=== PATIENT | male | born 1950 | race Caucasian/White ===

== ENCOUNTER 2018-11-02 00:43 | Outpatient (CLI) | payer BC, SELFPAY ==
--- NOTE | 2018-11-02 07:29 | MERGE_ITS ---
*[facility]* *[facility]* [address] [place] [address] Date of study: 11/02/2018 Transthoracic Echocardiography M-mode, complete 2D, complete spectral Doppler, and color Doppler *STUDY CONCLUSIONS* Summary: 1. Left ventricle: The cavity size was mildly to moderately dilated. Systolic function was normal. The estimated ejection fraction was 60-65%. Wall motion was normal; there were no regional wall motion abnormalities. Diastolic parameters were normal for age. There was no evidence of elevated ventricular filling pressure by Doppler parameters. 2. Aortic valve: There was moderate to severe regurgitation. 3. Aortic root: The aortic root was normal in size. 4. Ascending aorta: The ascending aorta was moderately dilated. 5. Mitral valve: There was mild regurgitation. 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 Chordal ROCÍO. 6. Right ventricle: The cavity size was normal. Wall thickness was normal. Systolic function was normal. 7. Right atrium: The atrium was mildly dilated. 8. Atrial septum: No defect or patent foramen ovale was identified. 9. Pulmonary arteries: Pulmonary systolic pressure was in the range of 20mm Hg to 30mm Hg. 10. Inferior vena cava: The vessel was patent and normal in size. The respirophasic diameter changes were in the normal range (greater than or equal to 50%), consistent with normal central venous pressure. *PATIENT PRESENTATION* Height: () S/D Pressure: 151 / 69 Weight: 86.4kg (190lb ) BSA: Test start time: 07:40 AM. Test stop time: 08:45 AM. PERFORMING Unknown PERFORMING [facility] SUPERVISOR POWDERED SUGAR RT Manpreet Mckenzie)(CT), [facility] CONSULTING Khoa Jose ORDERING Khoa Jose REFERRING Khoa Jose *PROCEDURE DATA* Procedure information: The patient was identified by two identifiers. This study was interpreted by [facility]. Pertinent images and digital data are archived for permanent storage and are available for subsequent review. No prior study was available for comparison. Study status: Routine. Transthoracic echocardiography. M-mode, complete 2D, complete spectral Doppler, and color Doppler. A Transthoracic Echocardiogram was performed. Scanning was performed from the parasternal, apical, subcostal, and suprasternal notch acoustic windows. Images were obtained using an [id number] cardiac ultrasound machine. Image quality was fair. Study completion: The patient tolerated the procedure well. History: PMH: Aortic diastolic murmur i35.8. *CARDIAC ANATOMY* Left ventricle: The cavity size was mildly to moderately dilated. Systolic function was normal. The estimated ejection fraction was 60-65%. Wall motion was normal; there were no regional wall motion abnormalities. Diastolic parameters were normal for age. There was no evidence of elevated ventricular filling pressure by Doppler parameters. Aortic valve: Trileaflet. Doppler: There was no stenosis. There was moderate to severe regurgitation. VTI ratio of LVOT to aortic valve: 0.84. Valve area (VTI): 3.1cm^2. Peak velocity ratio of LVOT to aortic valve: 0.88. Valve area (Vmax): 3.3cm^2. Mean velocity ratio of LVOT to aortic valve: 0.81. Valve area (Vmean): 3cm^2. Mean gradient (S): 9.8mm Hg. Peak gradient (S): 17.1mm Hg. Aorta: Aortic root: The aortic root was normal in size. Ascending aorta: The ascending aorta was moderately dilated. Mitral valve: Doppler: There was no evidence for stenosis. There was mild regurgitation. Valve area by pressure half-time: 2.6cm^2. Left atrium: The atrium was normal in size. Atrial septum: No defect or patent foramen ovale was identified. Right ventricle: The cavity size was normal. Wall thickness was normal. Systolic function was normal. Pulmonic valve: Doppler: There was no evidence for stenosis. There was mild regurgitation. Tricuspid valve: Doppler: There was mild regurgitation. Pulmonary artery: Poorly visualized. Pulmonary systolic pressure was in the range of 20mm Hg to 30mm Hg. Right atrium: The atrium was mildly dilated. Pericardium: There was no pericardial effusion. Systemic veins: Inferior vena cava: Well visualized. The vessel was patent and normal in size. The respirophasic diameter changes were in the normal range (greater than or equal to 50%), consistent with normal central venous pressure. Baseline ECG: Bradycardia. Measurements Left ventricle Value Reference LV ID, ED, PLAX (H) 6.3 cm 3.5 - 6.0 LV ID, ES, PLAX (H) 4.2 cm 2.1 - 4.0 LV PW thickness, ED, PLAX 0.9 cm LV end-diastolic volume, 1-p A2C 167 ml LV ejection fraction, 1-p A2C 71 % LV end-diastolic volume, 1-p A4C 142 ml LV ejection fraction, 1-p A4C 68 % LV e', lateral 0.099 m/sec LV E/e', lateral 7 LV e', medial 0.071 m/sec LV E/e', medial 9 LV e', average 0.085 m/sec LV E/e', average 8 Ventricular septum Value Reference IVS thickness, ED, PLAX 0.9 cm LVOT Value Reference LVOT ID, A-P 2.2 cm LVOT area 3.7 cm^2 LVOT peak velocity, S 1.82 m/sec LVOT mean velocity, S 1.21 m/sec LVOT VTI, S 42.1 cm LVOT peak gradient, S 13.2 mm Hg LVOT mean gradient, S 6.9 mm Hg Stroke volume (SV), LVOT DP 157 ml Aortic valve Value Reference Aortic valve peak velocity, S 2.1 m/sec Aortic valve mean velocity, S 1.5 m/sec Aortic valve VTI, S 50.0 cm Aortic mean gradient, S 9.8 mm Hg Aortic peak gradient, S 17.1 mm Hg VTI ratio, LVOT/AV 0.84 Aortic valve area, VTI 3.1 cm^2 Velocity ratio, peak, LVOT/AV 0.88 Aortic valve area, peak velocity 3.3 cm^2 Velocity ratio, mean, LVOT/AV 0.81 Aortic valve area, mean velocity 3 cm^2 Aortic regurg peak velocity 2.22 m/sec Aortic regurg deceleration 356 cm/s^2 Aortic regurg deceleration time 623 ms Aortic regurg pressure half-time 181 ms Aortic regurg peak gradient 19.7 mm Hg Aorta Value Reference Aortic root ID, ED 3.7 cm Ascending aorta ID, A-P, S 4.2 cm Left atrium Value Reference LA ID, A-P, ES 3.6 cm LA volume, ES, 2-p 68 ml LA/aortic root ratio 0.96 Mitral valve Value Reference Mitral E-wave peak velocity 0.65 m/sec Mitral A-wave peak velocity 0.54 m/sec Mitral deceleration time (H) 288 ms 150 - 230 Mitral pressure half-time 83 ms Mitral E/A ratio, peak 1.19 Mitral valve area, PHT, DP 2.6 cm^2 Pulmonary veins Value Reference Pulmonary vein peak velocity, S 0.67 m/sec Pulmonary vein peak velocity, D 0.48 m/sec Pulmonary vein velocity ratio, peak, 1.41 S/D Pulmonary vein A-wave reversal peak 0.34 m/sec velocity Tricuspid valve Value Reference Tricuspid regurg peak velocity 2.6 m/sec Tricuspid peak RV-RA gradient 27.4 mm Hg Right atrium Value Reference RA area, ES, A4C (H) 19.7 cm^2 8.3 - 19.5 Legend: (L) and (H) linsey values outside specified reference range. I have personally reviewed the images and have reviewed and edited the reported findings. Electronically signed by Edvin Sanz MD 11/02/2018 12:02
== END 2018-11-02 01:03 ==
PROVIDERS: PCP Family Medicine; Visit Provider Family Medicine
DX: R01.1 Cardiac murmur, unspecified (principal); I35.1 Nonrheumatic aortic (valve) insufficiency; I34.0 Nonrheumatic mitral (valve) insufficiency
CPT/HCPCS: 93306

== ENCOUNTER 2018-12-01 02:28 | Outpatient (CLI) | payer BC, MEDICARE, SELFPAY ==
[2018-12-01 08:53] LABS: HCT 43.2 % (40.0-50.0); HGB 15.1 g/dL (13.5-17.5); Mean Corpuscular Hemoglobin 30.2 pg (27.0-33.0); Mean Corpuscular Volume 86.4 fL (80-95); Mean Platelet Volume 9.6 fL (8.0-11.0); Platelet Count 218 x1000/uL (130-400); RBC Distribution Width 13.8 % (11.8-14.1); White Blood Cell Count 5.92 k/cumm (4.4-10.8)
[2018-12-01 09:55] LABS: ALT 47 U/L (16-63); AST 26 U/L (15-37); Albumin 3.9 g/dL (3.4-5.0); Alkaline Phosphatase 55 U/L (46-116); BUN 18 mg/dL (7-18); Bilirubin, Total 0.6 mg/dL (0.2-1.0); CREATININE 1.09 mg/dL (0.70-1.30); Calcium 9.3 mg/dL (8.5-10.1); Calculated LDL 123 mg/dL; Chloride 105 mmol/L (98-107); Cholesterol 246 mg/dL (50-200); Glucose 98 mg/dL (70-100); HDL Cholesterol 100 mg/dL (40-60); Potassium 4.3 mmol/L (3.5-5.1); Sodium 141 mmol/L (136-145); Triglyceride 119 mg/dL (30-150)
== END 2018-12-01 02:48 ==
PROVIDERS: PCP Family Medicine; Visit Provider Family Medicine
DX: Z00.00 Encounter for general adult medical examination without abnormal findings (principal); Z13.220 Encounter for screening for lipoid disorders; Z13.228 Encounter for screening for other metabolic disorders; Z12.5 Encounter for screening for malignant neoplasm of prostate
CPT/HCPCS: 36415; 80053; 80061; 84153; 85027

== ENCOUNTER 2019-10-19 02:28 | Outpatient (CLI) | payer BC, SELFPAY, MEDICARE ==
--- NOTE | 2019-10-19 06:30 | DI.US_ITS ---
EXAM: US THYROID CLINICAL HISTORY: Enlargement of left lobe of thyroid/large nodule,E04.9. TECHNIQUE: Ultrasound thyroid performed using standard protocol. COMPARISON: No exams were available for comparison FINDINGS: ISTHMUS: 5 mm RIGHT LOBE: Size: 5 x 2.1 x 2.4 cm Echogenicity: Normal. Vascularity: Normal. Nodules: 2.7 x 1.7 x 1.7 cm mixed cystic and solid nodule in the midpole. The solid component is iso echoic. No suspicious echogenic foci internally. The margins are ill-defined in some areas. But we ll-defined in other areas. LEFT LOBE: Size: 6 x 2.6 x 3.0 cm Echogenicity: Normal. Vascularity: Normal. Nodules: 4.1 x 2.3 x 2.3 cm mixed cystic and solid nodule. The margins of the nodule are smooth. No suspicious echogenic foci are seen. Solid components are isoechoic. OTHER FINDINGS: None. IMPRESSION: Two thyroid nodules. The largest is in the left lobe measures 4.1 craniocaudad by 2.3 AP by 2.3 davis sverse cm. The smaller measures 2.7 cc by 1.7 AP by 1.7 transverse cm. They both are TI-RADS level 2 nodules. DATA REPOSITORY:
== END 2019-10-19 02:48 ==
PROVIDERS: PCP Family Medicine; Visit Provider Family Medicine
DX: E04.2 Nontoxic multinodular goiter (principal)
CPT/HCPCS: 76536

== ENCOUNTER 2019-10-23 02:32 | Outpatient (CLI) | payer BC, MEDICARE, SELFPAY ==
[2019-10-23 08:50] LABS: TSH 1.92 uIU/mL (0.36-3.74)
== END 2019-10-23 02:52 ==
PROVIDERS: PCP Family Medicine; Visit Provider Family Medicine
DX: R53.83 Other fatigue (principal); E04.9 Nontoxic goiter, unspecified
CPT/HCPCS: 36415; 84439; 84443; 84481

== ENCOUNTER → 2020-05-13 12:44 | Outpatient (BNVA) | payer MEDICARE, SELFPAY | PROVIDERS: PCP Family Medicine; Referring Provider Family Medicine; Visit Provider Internal Medicine Cardiovascular Disease | DX: I35.1 Nonrheumatic aortic (valve) insufficiency (principal); I77.819 Aortic ectasia, unspecified site; I35.8 Other nonrheumatic aortic valve disorders | CPT/HCPCS: 99203 ==

== ENCOUNTER → 2020-11-18 13:20 | Outpatient (BNVA) | payer MEDICARE, SELFPAY | PROVIDERS: PCP Nurse Practitioner Family; Referring Provider Family Medicine; Visit Provider Internal Medicine Cardiovascular Disease | DX: I35.1 Nonrheumatic aortic (valve) insufficiency (principal) | CPT/HCPCS: 99214; 99213 ==

== ENCOUNTER 2021-05-21 03:53 | Outpatient (CLI) | payer MEDICARE, SELFPAY ==
[2021-05-21 10:38] LABS: Calculated LDL 165 mg/dL (<100); Cholesterol 265 mg/dL (<200); HDL Cholesterol 74 mg/dL (40-60); TSH 1.16 uIU/mL (0.36-3.74); Triglyceride 131 mg/dL (<150)
== END 2021-05-21 03:54 | disposition home or self-care (01) ==
LOC: LBO 03:53
PROVIDERS: PCP Nurse Practitioner Family; Visit Provider Nurse Practitioner Family
DX: E04.2 Nontoxic multinodular goiter (principal); E78.5 Hyperlipidemia, unspecified
CPT/HCPCS: 36415; 80061; 84443

== ENCOUNTER → 2022-11-02 01:50 | Outpatient (CLI) | payer MEDICARE, SELFPAY ==
--- NOTE | 2022-11-02 06:45 | DI.US_ITS ---
APPROVED REPORT EXAM: Comprehensive 2D, Doppler, and color-flow Echocardiogram Patient Location: Out-Patient [facility] Helper: Gilmer Morales RDCS (AE) Indications: aortic heart murmur Other Information Study Quality: Good Conclusion Left ventricle is top normal in size. Wall thickness is normal. Ejection fraction is 60%. There ar e no segmental wall motion abnormalities Normal right ventricular size and systolic function Both atria are normal in size The aortic valve is trileaflet with moderate regurgitation Dilated ascending aorta measuring 4.09 cm Estimated right ventricular systolic pressure is 32 mmHg Wall motion Left Ventricle The left ventricle is normal size. The left ventricular systolic function is normal. The left ventric ular ejection fraction is within the normal range. There is normal left ventricular wall thickness. T here is normal LV segmental wall motion. There is no ventricular septal defect visualized. LVEF is 60 %. Right Ventricle The right ventricle is normal size. The right ventricular systolic function is normal. The RVSP is 32 .5 mmHg. Atria The left atrium size is normal. The right atrium size is normal. The interatrial septum is intact wit h no evidence for an atrial septal defect. Aortic Valve The Aortic valve is sclerotic. Aortic valve is trileaflet. There is no aortic valvular stenosis. mode rate aortic regurgitation Mitral Valve The mitral valve is normal in structure. No evidence of mitral valve stenosis. Mild mitral regurgitat ion. Tricuspid Valve The tricuspid valve is normal in structure. There is no tricuspid valve stenosis. Mild tricuspid regu rgitation. Pulmonic Valve The pulmonary valve is normal in structure. There is no pulmonic valvular stenosis. Trace pulmonic re gurgitation. Great Vessels The aortic root is normal in size. The ascending aorta is moderately dilated. Aortic arch is normal i n caliber. IVC is normal in size and collapses >50% with inspiration. Pericardium There is no pericardial effusion. 2D Dimensions IVSD d PLAX 0.93 cm M: 0.6-1.2 Ao Root d 3.68 cm M: 3.1 - 3.7 LVPW d PLAX 0.83 cm M: 0.6 - 1.2 Ao Asc Diam d 4.07 cm M: 2.6 - 3.4 LVID d PLAX 5.63 cm M: 4.2 - 5.8 LVDs 3.76 cm M: 2.5 - 4.0 LV EF Teichholz 61.2 % FS 33.23 % LV EDV (Teich) 155.4 mL LV ESV (Teich) 60.3 mL Stroke Vol Index (Teich) 46.17 M-Mode TAPSE 1.85 cm (M/F) >1.7 Auto EF LV EDV A4C 189.6 mL LV EDV A2C 223.2 mL LV EDV BP 201.4 mL LV ESV A4C 77.3 mL LV ESV A2C 87.8 mL LV ESV BP 81.5 mL LVEF(%) A4C 59.3 % LVEF(%) A2C 60.7 % LVEF(%) BP 59.5 % LV SV A4C 112.3 ml LV SV A2C 135.4 ml LV SV BP 119.9 ml LV CO A4C 6.1 L/min LV CO A2C 7.0 L/min LV CO BP 6.6 L/min HR A4C 54.30 BPM HR A2C 51.95 BPM LV EDV Index (BP) LA Volume LA Length A4C 6.0 cm LA Length A2C LA Area A4C s 20.83 cm2 LA Area A2C s LA Vol A4C A-L 61.76 mL LA Vol A2C A-L LA Vol Biplane A-L LA Vol A4C MOD 58.6 mL LA Vol A2C MOD LA Vol BP MOD RA Volume RA Area A4C 16.6 cm2 RA ESV A4C (A-L) 39.9mL RA Vol/BSA A4C A-L RA Length A4C 5.9 cm RA ESV A4C (MOD) 38.9mL LV Diastology MV E' medial 0.084 (>0.07 m/s) MV E Vmax 0.78 (0.4-1.3 m/s) MV E/E' MED 9.29 (<14) MV A Vmax 0.70 (0.4-1.3 m/s) MV E' lateral 0.132 (>0.1 m/s) E/A Ratio 1.1 MV E/E' LAT 5.91 (<14) MV E' Average 0.108 m/s MV E/E'(average) 7.22 Aortic Valve AoV Vmax 1.87 m/s LVOT Vmax 1.75 m/s AoV Peak Grad 29.6 mmHg LVOT Peak Grad 12.3 mmHg AoV Area (Vmax) 3.30 cm2 LVOT VTI 0.420 m AoV VTI 0.487 m LVOT Mean Grad 7.4 mmHg AoV Mean Jake. 1.26 m/s LVOT SV 147.72 mL AoV Mean Grad 7.3 mmHg LVOT Diam s 2.10 cm AoV Area (VTI) 3.03 cm2 AV Regurg Peak Gr. 45.20 mmHg Velocity Ratio 0.94 AR Decel [place] 1.4m/sec2 AR DT 2439 msec AR PHT 707 msec AR Vmax 3.36 m/s Mitral Valve MV DT 191 (160-240 msec) Pulmonary Valve PV Vmax 0.99 (0.5-1.5 m/s) RVOT Vmax 0.72 m/s PV Peak Grad 3.9 mmHg RVOT Peak Gr. 2.1 mmHg PV Mean Jake 0.72 m/s RVOT VTI 0.159 m PV Mean Grad 2.4 mmHg RVOT Mean Gr. 1.0 mmHg Tricuspid Valve RA Pressure 3.00 mmHg TR Vmax 2.72 m/s TR Peak Grad 29.5 mmHg RVSP (TR) 32.5 mmHg
== END ==
PROVIDERS: PCP Nurse Practitioner Family; Visit Provider Nurse Practitioner Family
DX: I35.8 Other nonrheumatic aortic valve disorders (principal)
CPT/HCPCS: 93306

== ENCOUNTER 2022-11-16 09:00 | Outpatient (CLI) | payer MEDICARE, SELFPAY ==
--- NOTE | 2022-11-16 15:30 | RT.EKG_ITS ---
APPROVED REPORT Exam: Resting ECG Reason for Exam: Aortic Dilation Patient Location: O HR:61 bpm ECG Measurements Heart Rate 61 AXIS MD 176 P 38 QRSd 96 QRS 2 QT 401 T 54 QTc 404 Conclusion Sinus rhythm...normal P axis, V-rate 50- 99 Left ventricular hypertrophy...multiple voltage criteria
== END 2022-11-16 09:01 | disposition home or self-care (01) ==
PROVIDERS: PCP Nurse Practitioner Family; Visit Provider Internal Medicine Cardiovascular Disease
DX: I77.819 Aortic ectasia, unspecified site (principal)
CPT/HCPCS: 93010

== ENCOUNTER → 2022-11-16 09:10 | Outpatient (BNVA) | payer MEDICARE, SELFPAY | PROVIDERS: PCP Nurse Practitioner Family; Referring Provider Nurse Practitioner Family; Visit Provider Internal Medicine Cardiovascular Disease | DX: I77.810 Thoracic aortic ectasia (principal); I35.1 Nonrheumatic aortic (valve) insufficiency | CPT/HCPCS: 99214 ==

== ENCOUNTER 2022-12-11 19:46 | Outpatient (REF) | payer MEDICARE, SELFPAY ==
[2022-12-11 17:58] LABS: Anion Gap 7.8 mmol/L (3-11); BUN 21 mg/dL (7-18); CO2 25.2 mmol/L (21.0-32.0); Calcium 9.5 mg/dL (8.5-10.1); Chloride 99 mmol/L (98-107); Estimated GFR 79.97 (mL/min/1.73m2); Glucose 112 mg/dL (74-106); Potassium 4.2 mmol/L (3.5-5.1); Sodium 132 mmol/L (136-145)
== END 2022-12-11 19:47 | disposition home or self-care (01) ==
LOC: LBN 19:46
PROVIDERS: PCP Nurse Practitioner Family; Visit Provider Physician Assistant
DX: U07.1 COVID-19 (principal)
CPT/HCPCS: 80048

== ENCOUNTER 2023-06-03 01:17 | Outpatient (CLI) | payer MEDICARE, SELFPAY ==
[2023-06-03 13:10] LABS: Calculated LDL 119 mg/dL (<100); Cholesterol 241 mg/dL (<200); HDL Cholesterol 105 mg/dL (40-60); Triglyceride 89 mg/dL (<150)
[2023-06-08 15:59] LABS: Hemoglobin A1C 5.5 % (<5.7)
== END 2023-06-03 01:18 | disposition home or self-care (01) ==
LOC: LOS 01:17
PROVIDERS: PCP Nurse Practitioner Family; Visit Provider Nurse Practitioner Family
DX: E78.2 Mixed hyperlipidemia (principal); Z13.1 Encounter for screening for diabetes mellitus
CPT/HCPCS: 36415; 80061; 83036

== ENCOUNTER → 2023-07-25 04:50 | Outpatient (CLI) | payer MEDICARE, SELFPAY ==
--- NOTE | 2023-07-25 14:00 | DI.US_ITS ---
APPROVED REPORT EXAM: Comprehensive 2D, Doppler, and color-flow Echocardiogram Patient Location: Out-Patient [employer] Helper: Gilmer Morales RDCS (AE) Indications: Aortic regurgitation Conclusion Normal left ventricular wall thickness and chamber size. EF is 60%. Wall motion is normal Normal right ventricular size and function Both atria are normal in size Trileaflet aortic valve with mild to moderate regurgitation Mild mitral and tricuspid regurgitation Dilated ascending aorta measuring 4.25 cm Estimated right ventricular systolic pressure is 27 mmHg Wall motion Left Ventricle The left ventricle is normal size. The left ventricular systolic function is normal. The left ventric ular ejection fraction is within the normal range. There is normal left ventricular wall thickness. T here is normal LV segmental wall motion. There is no ventricular septal defect visualized. LVEF is 60 %. Right Ventricle The right ventricle is normal size. The right ventricular systolic function is normal. Atria The left atrium size is normal. The right atrium size is normal. The interatrial septum is intact wit h no evidence for an atrial septal defect. Aortic Valve The aortic valve is normal in structure. Aortic valve is trileaflet. There is no aortic valvular sten osis. Mild to moderate aortic regurgitation. Mitral Valve The mitral valve is normal in structure. No evidence of mitral valve stenosis. Mild mitral regurgitat ion. Tricuspid Valve The tricuspid valve is normal in structure. There is no tricuspid valve stenosis. Mild tricuspid regu rgitation. The RVSP is 27.5 mmHg. Pulmonic Valve The pulmonary valve is normal in structure. There is no pulmonic valvular stenosis. Moderate pulmonic regurgitation. Great Vessels The aortic root is normal in size. The ascending aorta is moderately dilated. Aortic arch is normal i n caliber. IVC is normal in size and collapses >50% with inspiration. Pericardium There is no pericardial effusion. 2D Dimensions IVSD d PLAX 0.85 cm M: 0.6-1.2 Ao Root d 3.85 cm M: 3.1 - 3.7 LVPW d PLAX 0.77 cm M: 0.6 - 1.2 Ao Asc Diam d 4.28 cm M: 2.6 - 3.4 LVID d PLAX 5.07 cm M: 4.2 - 5.8 LVDs 3.46 cm M: 2.5 - 4.0 LV EF Teichholz 59.6 % FS 31.81 % LV EDV (Teich) 122.2 mL LV ESV (Teich) 49.4 mL M-Mode TAPSE 2.09 cm (M/F) >1.7 Auto EF LV EDV A4C 171.4 mL LV EDV A2C 190.3 mL LV EDV BP 186.7 mL LV ESV A4C 69.4 mL LV ESV A2C 76.4 mL LV ESV BP 72.3 mL LVEF(%) A4C 59.5 % LVEF(%) A2C 59.9 % LVEF(%) BP 61.3 % LV SV A4C 102.0 ml LV SV A2C 113.9 ml LV SV BP 114.4 ml LV CO A4C 5.6 L/min LV CO A2C 6.1 L/min LV CO BP 5.9 L/min HR A4C 55.38 BPM HR A2C 53.74 BPM LV EDV Index (BP) LA Volume LA Length A4C 5.0 cm LA Length A2C 4.4 cm LA Area A4C s 16.51 cm2 LA Area A2C s 18.94 cm2 LA Vol A4C A-L 45.95 mL LA Vol A2C A-L 68.59 mL LA Vol Biplane A-L 59.8 mL LA Vol A4C MOD 39.0 mL LA Vol A2C MOD 65.2 mL LA Vol BP MOD 53.2 mL RA Volume RA Area A4C 10.1 cm2 RA ESV A4C (A-L) 18.1mL RA Vol/BSA A4C A-L RA Length A4C 4.8 cm RA ESV A4C (MOD) 17.6mL LV Diastology MV E' medial 0.082 (>0.07 m/s) MV E Vmax 0.73 (0.4-1.3 m/s) MV E/E' MED 8.94 (<14) MV A Vmax 0.65 (0.4-1.3 m/s) MV E' lateral 0.104 (>0.1 m/s) E/A Ratio 1.1 MV E/E' LAT 7.03 (<14) MV E' Average 0.093 m/s MV E/E'(average) 7.87 Aortic Valve AoV Vmax 1.88 m/s LVOT Vmax 1.71 m/s AoV Peak Grad 14.2 mmHg LVOT Peak Grad 11.7 mmHg AoV Area (Vmax) 3.26 cm2 LVOT VTI 0.381 m AoV VTI 0.459 m LVOT Mean Grad 6.2 mmHg AoV Mean Jake. 1.21 m/s LVOT SV 136.90 mL AoV Mean Grad 7.0 mmHg LVOT Diam s 2.10 cm AoV Area (VTI) 2.98 cm2 Velocity Ratio 0.91 Mitral Valve MV DT 243 (160-240 msec) Tricuspid Valve RA Pressure 3.00 mmHg TR Vmax 2.47 m/s TR Peak Grad 24.4 mmHg RVSP (TR) 27.5 mmHg
== END ==
PROVIDERS: PCP Nurse Practitioner Family; Visit Provider Internal Medicine Cardiovascular Disease
DX: I35.1 Nonrheumatic aortic (valve) insufficiency (principal); I36.1 Nonrheumatic tricuspid (valve) insufficiency; I34.0 Nonrheumatic mitral (valve) insufficiency
CPT/HCPCS: 93306

== ENCOUNTER → 2023-08-30 14:26 | Outpatient (BNVA) | payer MEDICARE, SELFPAY | PROVIDERS: PCP Nurse Practitioner Family; Visit Provider Internal Medicine Cardiovascular Disease | DX: I35.1 Nonrheumatic aortic (valve) insufficiency (principal); I77.819 Aortic ectasia, unspecified site | CPT/HCPCS: 99213 ==

== ENCOUNTER 2023-10-25 01:32 | Outpatient (CLI) | payer MEDICARE, SELFPAY ==
--- NOTE | 2023-10-25 07:00 | DI.US_ITS ---
Exam(s) US THYROID EXAM: US THYROID CLINICAL HISTORY: Visible mass in the left anterior neck,thyroid enlargement,e04.1. TECHNIQUE: Ultrasound thyroid performed using standard protocol. COMPARISON: US US THYROID from 10/19/2019 FINDINGS: ISTHMUS: 6 mm RIGHT LOBE: Size: 5.5 x 1.7 x 3 0.0 cm Echogenicity: Normal. Vascularity: Normal. Nodules: 3.6 x 1.8 x 2.8 centimeter mixed cystic and solid lesion in the lower pole. Solid component is isoechoic. Wider than tall, smoothly marginated without echogenic foci. TR 2. Cystic component larger when compared to prior. LEFT LOBE: Size: 6.0 x 3.8 x 3 4 cm Echogenicity: Normal. Vascularity: Normal. Nodules: 4.1 x 3.2 x 3.1 centimeter mainly cystic lesion. There is some irregular wall thickening. Cystic component contains debris. Appearance is similar to prior. TR 2. OTHER FINDINGS: None. IMPRESSION: Mixed cystic and solid lesions in both lobes of the thyroid. The cystic components have increased co mpared with previous exam are the appearance is similar. TR 2. DATA REPOSITORY:
== END 2023-10-25 01:52 ==
LOC: DI 01:33
PROVIDERS: PCP Nurse Practitioner Family; Visit Provider Nurse Practitioner Family
DX: E04.9 Nontoxic goiter, unspecified (principal)
CPT/HCPCS: 76536

== ENCOUNTER 2023-10-25 10:43 | Outpatient (CLI) | payer MEDICARE, SELFPAY ==
[2023-10-25 11:16] LABS: Hemoglobin A1C 5.4 % (<5.7)
[2023-10-25 11:32] LABS: Calculated LDL 110 mg/dL (<100); Cholesterol 257 mg/dL (<200); HDL Cholesterol 124 mg/dL (40-60); TSH (W/Ref FT4) 1.73 uIU/mL (0.36-3.74); Triglyceride 118 mg/dL (<150)
[2023-10-25 19:44] LABS: PSA, Screening 1.8 ng/mL (<=6.5)
== END 2023-10-25 10:44 | disposition home or self-care (01) ==
LOC: LBO 10:43
PROVIDERS: PCP Nurse Practitioner Family; Visit Provider Nurse Practitioner Family
DX: Z12.5 Encounter for screening for malignant neoplasm of prostate (principal); Z13.1 Encounter for screening for diabetes mellitus; E04.9 Nontoxic goiter, unspecified; Z13.6 Encounter for screening for cardiovascular disorders
CPT/HCPCS: 36415; 80061; 84153; 83036; 84443

== ENCOUNTER 2024-07-23 15:18 | Outpatient (REF) | payer MEDICARE, SELFPAY ==
[2024-07-23 21:49] LABS: Abs Immature Grans 0.02 10^3/uL (0.0-0.06); Absolute Basophil Count 0.04 10^3/uL (0.0-0.2); Absolute Eosinophil Count 0.12 10^3/uL (0.0-0.7); Absolute Lymphocyte Count 1.74 10^3/uL (1.2-3.4); Absolute Monocyte Count 0.73 10^3/uL (0.1-0.8); Absolute Neutrophil Count 4.57 10^3/uL (1.2-6.7); Basophils % 0.6 %; Eosinophils % 1.7 %; HCT 44.2 % (40.0-50.0); HGB 14.9 g/dL (13.5-17.5); Immature Grans % 0.3 %; Lymphocytes % 24.1 %; MCH 29.3 pg (27.0-33.0); MCHC 33.7 % (32.0-36.0); MCV 87 fL (80-95); MPV 9.7 fL (8.0-11.0); Monocytes % 10.1 %; Neutrophils % 63.2 %; Platelet Count 302 10^3/uL (130-400); RBC 5.08 10^6/uL (4.36-5.78); RDW 12.9 % (11.8-14.1); RDW-SD 41.2 fL; WBC 7.22 10^3/uL (4.4-10.8)
[2024-07-23 21:52] LABS: TSH (W/Ref FT4) 1.78 uIU/mL (0.36-3.74)
== END 2024-07-23 15:19 | disposition home or self-care (01) ==
LOC: LBN 15:18
PROVIDERS: PCP Nurse Practitioner Family; Visit Provider Physician Assistant
DX: E07.9 Disorder of thyroid, unspecified (principal); R50.9 Fever, unspecified
CPT/HCPCS: 84443; 85025

== ENCOUNTER 2024-07-24 01:21 | Outpatient (CLI) | payer MEDICARE, SELFPAY ==
--- NOTE | 2024-07-24 14:38 | DI.US_ITS ---
Exam(s) US SOFT TISSUE HEAD OR NECK EXAM: US SOFT TISSUE HEAD OR NECK CLINICAL HISTORY: neck swelling, please ID, [id number] swelling, mass, and lump, neck. TECHNIQUE: Ultrasound was performed using standard protocol. COMPARISON: US US THYROID from 10/25/2023 FINDINGS: Sonographic assessment utilizing grayscale and color Doppler imaging was performed and targeted to th e area of clinical concern. The palpable abnormality corresponds to previously imaged lesion in the lower pole of the left lobe o f the thyroid. It measures 4.2 x 4.4 x 3.7 cm compared with 4.1 x 3.2 x 3.1 cm on the prior exam. I t is similar in appearance with irregular thickened wall and debris. The right thyroid lobe was not imaged on today's exam. IMPRESSION: Mild interval enlargement of previously noted complex cyst of the lower pole of the left lobe of the thyroid. DATA REPOSITORY:
== END 2024-07-24 01:41 ==
PROVIDERS: PCP Nurse Practitioner Family; Visit Provider Physician Assistant
DX: E04.1 Nontoxic single thyroid nodule (principal)
CPT/HCPCS: 76536

== ENCOUNTER 2024-07-24 11:21 | Outpatient (CLI) | payer MEDICARE, SELFPAY ==
--- NOTE | 2024-07-24 | DI.US_ITS ---
APPROVED REPORT EXAM: Comprehensive 2D, Doppler, and color-flow Echocardiogram Patient Location: Out-Patient Office Secretary: Terra Gill RDCS (AE) Indications: Aortic aneurysm Other Information Study Quality: Good Conclusion Normal left ventricular wall thickness and chamber size. Ejection fraction is 60%. Wall motion is n ormal Normal right ventricular size and function Both atria are normal in size Trileaflet aortic valve with mild regurgitation Normal mitral valve with mild regurgitation Trace to mild tricuspid regurgitation. Estimated right ventricular systolic pressure is 30 mmHg Ascending aorta measures 4.3 cm Wall motion Left Ventricle The left ventricle is normal size. The left ventricular systolic function is normal. The left ventric ular ejection fraction is within the normal range. There is normal left ventricular wall thickness. T here is normal LV segmental wall motion. There is no ventricular septal defect visualized. LVEF is 60 %. Right Ventricle The right ventricle is normal size. The right ventricular systolic function is normal. Atria The left atrium size is normal. The right atrium size is normal. The interatrial septum is intact wit h no evidence for an atrial septal defect. Aortic Valve The aortic valve is normal in structure. Aortic valve is trileaflet. There is no aortic valvular sten osis. Mild aortic regurgitation. Mitral Valve The mitral valve is normal in structure. No evidence of mitral valve stenosis. Mild mitral regurgitat ion. Tricuspid Valve The tricuspid valve is normal in structure. There is no tricuspid valve stenosis. Trace to mild tricu spid regurgitation. The RVSP is 29.8 mmHg. Pulmonic Valve The pulmonary valve is normal in structure. There is no pulmonic valvular stenosis. Trace pulmonic re gurgitation. Great Vessels The aortic root is normal in size. The ascending aorta is moderately dilated. Aortic arch is normal i n caliber. IVC is normal in size and collapses >50% with inspiration. Pericardium There is no pericardial effusion. 2D Dimensions IVSD d PLAX 1.02 cm M: 0.6-1.2 Ao Root d 3.66 cm M: 3.1 - 3.7 LVPW d PLAX 1.00 cm M: 0.6 - 1.2 Ao Asc Diam d 4.30 cm M: 2.6 - 3.4 LVID d PLAX 5.20 cm M: 4.2 - 5.8 LVDs 3.52 cm M: 2.5 - 4.0 LV EF Teichholz 60.2 % FS 32.29 % LV EDV (Teich) 129.7 mL LV ESV (Teich) 51.7 mL M-Mode TAPSE 2.21 cm (M/F) >1.7 Auto EF LV EDV A4C 163.2 mL LV EDV A2C 208.3 mL LV EDV BP 185.8 mL LV ESV A4C 67.4 mL LV ESV A2C 90.3 mL LV ESV BP 78.4 mL LVEF(%) A4C 58.7 % LVEF(%) A2C 56.7 % LVEF(%) BP 57.8 % LV SV A4C 95.8 ml LV SV A2C 118.0 ml LV SV BP 107.4 ml LV CO A4C 5.6 L/min LV CO A2C 6.9 L/min LV CO BP 6.3 L/min HR A4C 58.63 BPM HR A2C 58.44 BPM LV EDV Index (BP) LA Volume LA Length A4C 4.9 cm LA Length A2C 4.9 cm LA Area A4C s 14.10 cm2 LA Area A2C s 15.63 cm2 LA Vol A4C A-L 34.52 mL LA Vol A2C A-L 42.41 mL LA Vol Biplane A-L 38.3 mL LA Vol/BSA A4C A-L LA Vol/BSA A2C A-L LA Vol/BSA BP A-L 18.8 mL/m2 LA Vol A4C MOD 30.7 mL LA Vol A2C MOD 40.1 mL LA Vol BP MOD 35.0 mL RA Volume RA Area A4C 13.6 cm2 RA ESV A4C (A-L) 29.0mL RA Vol/BSA A4C A-L RA Length A4C 5.4 cm RA ESV A4C (MOD) 28.0mL LV Diastology MV E' medial 0.078 (>0.07 m/s) MV E Vmax 0.59 (0.4-1.3 m/s) MV E/E' MED 7.60 (<14) MV A Vmax 0.70 (0.4-1.3 m/s) MV E' lateral 0.123 (>0.1 m/s) E/A Ratio 0.8 MV E/E' LAT 4.80 (<14) MV E' Average 0.100 m/s MV E/E'(average) 5.88 Aortic Valve AoV Vmax 2.07 m/s LVOT Vmax 1.31 m/s AoV Peak Grad 31.0 mmHg LVOT Peak Grad 6.8 mmHg AoV Area (Vmax) 1.90 cm2 LVOT VTI 0.320 m AoV VTI 0.499 m LVOT Mean Grad 4.0 mmHg AoV Mean Jake. 1.41 m/s LVOT SV 96.24 mL AoV Mean Grad 9.1 mmHg LVOT Diam s 1.95 cm AoV Area (VTI) 1.93 cm2 AV Regurg Peak Gr. 17.12 mmHg Velocity Ratio 0.63 AR Decel [place] 1.6m/sec2 AR DT 2076 msec AR PHT 602 msec AR Vmax 3.35 m/s Mitral Valve MV DT 305 (160-240 msec) Pulmonary Valve PV Vmax 0.88 (0.5-1.5 m/s) RVOT Vmax 0.57 m/s PV Peak Grad 3.1 mmHg RVOT Peak Gr. 1.3 mmHg PV Mean Jake 0.60 m/s RVOT VTI 0.129 m PV Mean Grad 1.6 mmHg RVOT Mean Gr. 0.6 mmHg Tricuspid Valve RA Pressure 3.00 mmHg TR Vmax 2.59 m/s TV S' 0.11 m/s TR Peak Grad 26.8 mmHg RVSP (TR) 29.8 mmHg
== END 2024-07-24 11:41 ==
PROVIDERS: PCP Nurse Practitioner Family; Visit Provider Internal Medicine Cardiovascular Disease
DX: I08.2 Rheumatic disorders of both aortic and tricuspid valves (principal)
CPT/HCPCS: 93306

== ENCOUNTER 2024-08-06 10:53 | Outpatient (REF) | payer MEDICARE, SELFPAY ==
--- NOTE | 2024-08-06 10:15 | PAPNONF_PTH ---
PATIENT: Ash Pollard LOC: PIA U#:[id number] AGE/SX: 74/M ROOM: RE08/06/[address]: Annabelle Hicks : 1950 BED: DIS: 08/06/2024 SPEC #: [id number] RECD: 08/06/24 18:27 STATUS: REKHA REMayelin #: [id number] JANET: 08/06/24 10:[address]: Annabelle Hicks DEPT: [facility] Cytology RECD BY: Lidia Joshi ENTERED: 08/06/24 18:27 SP TYPE: DAISY CAVAZOS DR: Efraín Patel, DIXON Tissues: 1 - BODY FLUID CYTO-FINE NEEDLE [facility] Procedures: BODY FLUID CYTO-FINE NEEDLE [facility]IRATE[facility] Comments: [id number] (REFRIGERATED)
== END 2024-08-06 10:54 | disposition home or self-care (01) ==
LOC: LBN 10:53
PROVIDERS: PCP Nurse Practitioner Family; Visit Provider Registered Nurse Maternal Newborn
DX: E04.1 Nontoxic single thyroid nodule (principal)
CPT/HCPCS: 88104

== ENCOUNTER 2024-08-30 08:53 | Outpatient (CLI) | payer MEDICARE, SELFPAY ==
--- NOTE | 2024-08-30 08:45 | RT.EKG_ITS ---
APPROVED REPORT Exam: Resting ECG Reason for Exam: cardiac assessment Patient Location: O HR:58 bpm ECG Measurements Heart Rate 58 AXIS DC 172 P 38 QRSd 97 QRS -10 QT 389 T 47 QTc 383 Conclusion Sinus rhythm...normal P axis, V-rate 50- 99 Left ventricular hypertrophy...multiple voltage criteria Baseline wander in lead(s) V4
== END 2024-08-30 08:54 | disposition home or self-care (01) ==
LOC: DI.CARD 08:54
PROVIDERS: PCP Nurse Practitioner Family; Visit Provider Internal Medicine Cardiovascular Disease
DX: I35.8 Other nonrheumatic aortic valve disorders (principal); I35.1 Nonrheumatic aortic (valve) insufficiency; I77.819 Aortic ectasia, unspecified site; E78.2 Mixed hyperlipidemia
CPT/HCPCS: 93010

== ENCOUNTER → 2024-08-30 09:43 | Outpatient (BNVA) | payer MEDICARE, SELFPAY | PROVIDERS: PCP Nurse Practitioner Family; Referring Provider Nurse Practitioner Family; Visit Provider Internal Medicine Cardiovascular Disease | DX: I77.819 Aortic ectasia, unspecified site (principal); I35.1 Nonrheumatic aortic (valve) insufficiency; E78.2 Mixed hyperlipidemia; I35.8 Other nonrheumatic aortic valve disorders | CPT/HCPCS: 99214; 93005 ==